=== PATIENT | male | born 1970 | race African-American/Black ===

== ENCOUNTER 2025-04-29 17:26 | Emergency (ER) | payer OTHER, SELFPAY ==
[2025-04-29 17:28] VITALS: BP 168/97; PULSE 99; RESP 18; TEMP 36.6; O2SAT 98
--- OUTSIDE RECORDS SUMMARY | 2025-04-29 17:28 | XMS_ITS | Clinical Summary ---
Author Organization [address] Address [address] [place] [address] Care Team Providers Care Business Continuity Director Name Role Phone Unknown, Notinfile Primary Care Provider Unavail able Allergies No known active allergies Medications albuterol HFA (PROVENTIL HFA,VENTOLIN HFA,PROAIR HFA) 90 mcg/actuation inhaler Inhale 2 puffs every 6 (six) hours as needed 5 Active amLODIPine (NORVASC) 10 mg tablet Take 1 tablet (10 mg total) by mouth daily 5 Active losartan-hydroc hlorothiazide (HYZAAR) 100-25 mg per tablet Take 1 tablet by mouth daily 5 Active tadalafiL (ADCIRCA) 10 mg tablet Take 1 tablet (10 mg total) by mouth daily as needed 4 Active cyclobenzaprine (FLEXERIL) 10 mg tabletIndicatio ns:Sciatica of right side Take 1 tablet (10 mg total) by mouth 2 (two) times a day as needed for muscle spasms 15 tablet 5 Active methylPREDNISol one (MEDROL DOSEPACK) 4 mg DosepackIndicat ions:Sciatica of right side Take 6 tabs on day 1, reduce dose by 1 daily until prescription is complete. 1 packet 5 Active Active Problems No known active problems Social History Tobacco Use Types Packs/Day Years Used Date Smoking Tobacco: Never Assessed Sex and Gender Information Value Date Recorded Sex Assigned at Not on file Legal Sex Male 3:23 PM CDT Gender Identity Not on file Sexual Orientation Not on file Last Filed Vital Signs Vital Sign Reading Time Taken Comments Blood Pressure 145/85 10/10/2024 4:28 PM CDT Pulse 80 10/10/2024 4:28 PM CDT Temperature 36.8 C (98.2 F) 10/10/2024 4:28 PM CDT Respiratory Rate 18 10/10/2024 4:28 PM CDT Oxygen Saturation 95% 10/10/2024 4:28 PM CDT Inhaled Oxygen Concentration - - Weight 122.4 kg (269 lb 14.4 oz) 10/10/2024 4:28 PM CDT Height 180.3 cm (5' 11) 10/10/2024 4:28 PM CDT Body Mass Index 37.64 10/10/2024 4:28 PM CDT Plan of Treatment Health Maintenance Due Date Last Done Comments Colon Cancer Screening-Colonoscopy 1971 Depression Screening 1971 Hepatitis C Screening 1971 Prostate Cancer Screening-PSA 1971 Hepatitis B Screening 12/19/1989 Regular Well Visit/Exam 18-64 12/19/1989 Zoster Vaccine (1 of 2) 12/19/2021 Covid-19 Vaccine (3 - 2024-2 6 season) 2025 03/25/2021, 02/27/2021 Influenza Vaccine (#1) 2025 3, 02/14/2022 DTaP/Tdap/Td Vaccine (2 - Td or Tdap) 05/06/2026 05/06/2016 Pneumococcal vaccine <65 Aged Out No longer eligible based on patient's age to complete this topic Insurance SHOBHA ALLEGIANCE Care Teams Business Continuity Director Relationship Specialty Start Date End Date Unknown, Notinfile PCP - General 10/10/24
--- OUTSIDE RECORDS SUMMARY | 2025-04-29 17:28 | XMS_ITS | Clinical Summary ---
Author Organization [facility] Address [facility] [place] [address] Care Team Providers Care Canadian Bacon Tier Name Role Phone Ayde Berry MD Primary Care Provider [phone] Allergies No known active allergies Medications albuterol sulfate HFA 90 mcg/actuation aerosol inhaler Take 2 Puffs by inhalation every 6 hours as needed for Shortness of Breath. 8.5 Gram 5 Active vardenafiL (LEVITRA) 20 mg tabletIndications :Erectile dysfunction, unspecified erectile dysfunction type Take 1 Tablet (20 mg) by mouth 1 time daily as needed for Erectile Dysfunction. 18 Tablet 5 Active meloxicam (MOBIC) 7.5 mg tabletIndications :Low back pain potentially associated with radiculopathy,Rig ht knee pain, unspecified chronicity Take 1 Tablet (7.5 mg) by mouth daily. For back and knee pain 90 Tablet 5 Active amLODIPine (NORVASC) 10 mg tabletIndications :Benign hypertension Take 1 Tablet (10 mg) by mouth daily. 90 Tablet 5 Active losartan-hydroCHL OROthiazide (HYZAAR) 100-25 mg tabletIndications :Benign hypertension Take 1 Tablet by mouth daily in the morning. 90 Tablet 5 Active fexofenadine (FABIENNE) 180 mg tablet Take 1 Tablet (180 mg) by mouth daily. For allergies 90 Tablet 5 Active Active Problems Problem Noted Date Diagnosed Date Erectile dysfunction 11/12/2023 Tobacco use 11/30/2019 Plantar fasciitis of left foot 08/14/2018 IFG (impaired fasting glucose) 08/14/2018 Benign hypertension 01/10/2018 Encounters Date Type Department Care Team Description 04/14/2025 8:00 AM SHRIMP HEADER Office Visit [facility] [address] [place] [address] Michael Lees Grief (Primary Dx) 03/31/2025 Chart Note [facility] [address] [place] [address] Michael Lees 03/24/2025 8:00 AM SHRIMP HEADER Office Visit [facility] [address] [place] [address] Michael Lees Grief (Primary Dx) 03/10/2025 8:00 AM SHRIMP HEADER Office Visit [facility] [address] [place] [address] Michael Lees Grief (Primary Dx) 03/10/2025 External Device Data STL ABSTRACTION Provider, Abstract 03/03/2025 External Device Data STL ABSTRACTION Provider, Abstract 02/24/2025 8:00 AM CDT Office Visit [facility] [address] [place] [address] Michael Lees Grief (Primary Dx) 02/17/2025 Chart Note [facility] [address] [place] [address] Michael Lees 02/11/2025 Results Follow-Up [facility] [address] [place] [address] Emelia Cadet, ANP PSA, URINALYSIS WITH REFLEX MICROSCOPIC, MICROALBUMIN/CREATIN INE RATIO, RANDOM UR 02/10/2025 9:00 AM CDT Office Visit [facility] [address] [place] [address] Michael Lees Grief (Primary Dx) 02/08/2025 8:20 AM CDT Procedure visit [facility] [place] [address] [place] [address] Screening for prostate cancer; Benign hypertension 02/01/2025 7:30 AM CDT Office Visit [facility] [place] [address] [place] [address] Emelia Cadet, SAAD Benign hypertension (Primary Dx); Low back pain potentially associated with radiculopathy; Right knee pain, unspecified chronicity; Grief; Severe obesity (BMI 35.0-39.9) with comorbidity (CMS/HCC); Screen for colon cancer from Last 3 Months Immunizations Immunization Administration Dates Next Due (ADACEL/BOOSTRIX)(10 YR UP) TDAP VACCINE, 0.5ML, IM 05/06/2016 (SPIKEVAX) (12 YRS UP PRIMAR Y SERIES) COVID-19 VACCINE - MRNA-1273(PF) 100 MCG/0.5 ML IM SUSP 03/27/2021,02/27/2021 INFLUENZA VACCINE QUADRIVALENT 6 MOS UP PF IM ,02/14/2022 Family History Medical History Relation Name Comments Sudden Brother 1 MVA No Known Problems Daughter Diabetes Father Unknown Father Unknown Maternal Grandfather Cancer Maternal Grandmother Hypertension Mother Lung Cancer Mother Unknown Paternal Grandfather Unknown Paternal Grandmother No Known Problems Son Relation Name Status Comments Brother 1 Brother 2 Alive Brother 3 Alive Daughter Alive Father Maternal Grandfather Maternal Grandmother Mother Alive Paternal Grandfather Paternal Grandmother Sister Alive Son Alive Social History Tobacco Use Types Packs/Day Years Used Date Smoking Tobacco: Some Days Cigarettes Passive Smoke Exposure: Never Smokeless Tobacco: Never Tobacco Cessation:Counseling Given: Not Answered Comments:ONE EVERY TWO MONTHS AT MOST. Alcohol Use Standard Drinks/Week Comments Yes 0 (1 standard drink = 0.6 oz pur e alcohol) a drink or 2 every 2 weeks. Sex and Gender Information Value Date Recorded Sex Assigned at Not on file Legal Sex Male 1:43 PM SHRIMP HEADER Gender Identity Not on file Sexual Orientation Not on file Last Filed Vital Signs Vital Sign Reading Time Taken Comments Blood Pressure 138/86 02/01/2025 7:09 AM CDT Pulse 77 02/01/2025 7:09 AM CDT Temperature 36.2 C (97.2 F) 02/01/2025 7:09 AM CDT Respiratory Rate 18 02/01/2025 7:09 AM CDT Oxygen Saturation 97% 02/01/2025 7:09 AM CDT Inhaled Oxygen Concentration - - Weight 123.4 kg (272 lb) 02/01/2025 7:09 AM CDT Height 177.8 cm (5' 10) 02/01/2025 7:09 AM CDT Body Mass Index 39.03 02/01/2025 7:09 AM CDT Plan of Treatment Upcoming Encounters Date Type Department Care Team (Late st Contact Info) Description 05/03/2025 8:00 AM SHRIMP HEADER Office Visit [facility] [place] [address] [place] [address] Michael Lees [address] [place] [phone] 05/24/2025 8:00 AM SHRIMP HEADER Office Visit [facility] [place] [address] [place] [address] Michael Lees [address] [place] [phone] 07/26/2025 8:30 AM CDT Office Visit [facility] [employer] [place] [address] [place] [address] Emelia Cadet, [facility] [address] [place] [address] Health Maintenance Due Date Last Done Comments HEPATITIS B VACCINES (1 of 3 - 19+ 3-dose series) 12/19/1990 COLORECTAL SCREENING 12/19/2016 Colorectal Cancer Screening 12/19/2016 FIT-DNA Q 3 years 12/19/2016 FIT/FOBT Q 1 year 12/19/2016 Flex Sig/CT Colonography Q 5 years 12/19/2016 ZOSTER VACCINE (1 of 2) 12/19/2021 INFLUENZA VACCINE (#1) 2024 02/07/2023, 2021 COVID-19 Vaccine (3 - 2024-2 6 season) 2025 03/27/2021, 02/27/2021 DTAP/TDAP/TD VACCINES (2 - T d or Tdap) 05/06/2026 05/06/2016 Pre-Diabetes and Diabetes Screening 08/04/2027 08/03/2024, 07/08/2023, 10/08/2022, Additional history exists Procedures Procedure Name Priority Date/Time Associated Diagnosis Comments MICROALBUMIN/CREATIN INE RATIO, RANDOM UR Routine 02/08/2025 8:02 AM CDT Benign hypertension URINALYSIS W/REFLEX MICROSCOPIC Routine 02/08/2025 8:02 AM CDT Benign hypertension PSA Routine 02/08/2025 8:02 AM CDT Screening for prostate cancer HEMOGLOBIN A1C Routine 08/03/2024 7:44 AM CDT IFG (impaired fasting glucose) from Last 3 Months or Most Recently Relevant to Health Maintenance Results * MICROALBUMIN/CREATININE RATIO, RANDOM UR (02/08/2025 8:02 AM CDT) CREATININE, URINE 222 20 - 320 mg/dL [facility] ALBUMIN, URINE 0.8 See Note: mg/dL [facility] Comment: Reference Range: Reference Range Not established ALB/CREAT RATIO, URINE 4 <30 mg/g creat [facility] Comment: The ADA defines abnormalities in albumin excretion as follows: Albuminuria Category Result (mg/g creatinine) Normal to Mildly increased <30 Moderately increased 30-299 Severely increased > OR = 300 The ADA recommends that at least two of three specimens collected within a 3-6 month period be abnormal before considering a patient to be within a diagnostic category. Test Performed at: [facility] [address] [address] Hillary Lebron MD Urine URINE SPECIMEN OBTAINED BY CLEAN CATCH PROCEDURE / Unknown 02/08/2025 8:02 AM CDT 02/09/2025 6:34 AM CDT Emelia Cadet ANP URINE ORDERABLES Final Resul t Performing Organization Address [facility] de Phone Number [facility] [phone] [facility] [address] [place] [address] * URINALYSIS WITH REFLEX MICROSCOPIC (02/08/2025 8:02 AM CDT) COLOR UA YELLOW YELLOW [facility] CLARITY UA CLEAR CLEAR [facility] SPECIFIC GRAVITY UA 1.028 1.001 - 1.035 [facility] PH UA 6.0 5.0 - 8.0 [facility] GLUCOSE UA NEGATIVE NEGATIVE [facility] BILIRUBIN UA NEGATIVE NEGATIVE [facility] KETONES UA NEGATIVE NEGATIVE [facility] BLOOD UA NEGATIVE NEGATIVE [facility] PROTEIN UA NEGATIVE NEGATIVE [facility] NITRITE UA NEGATIVE NEGATIVE [facility] LEUKOCYTE ESTERASE UA NEGATIVE NEGATIVE [facility] Comment: Test Performed at: [facility] [address] [place] [address] Hillary Lebron MD Urine URINE SPECIMEN OBTAINED BY CLEAN CATCH PROCEDURE / Unknown 02/08/2025 8:02 AM CDT 02/09/2025 6:34 AM CDT Emelia Cadet ANP URINE ORDERABLES Final Resul t Performing Organization Address [facility] Co de Phone Number [facility] [phone] [facility] [address] [place] [address] * PSA (02/08/2025 8:02 AM CDT) Pathologist [facility] PSA 0.48 < OR = 4.00 ng/mL [facility] Comment: The total PSA value from this assay system is standardized against the WHO standard. The test result will be approximately 20% lower when compared to the equimolar-standardized total PSA (Nathaniel Baljit). Comparison of serial PSA results should be interpreted with this fact in mind. This test was performed using the Siemens chemiluminescent method. Values obtained from different assay methods cannot be used interchangeably. PSA levels, regardless of value, should not be interpreted as absolute evidence of the presence or absence of disease. Test Performed at: [facility] [address] Hillary Lebron MD Blood 02/08/2025 8:02 AM CDT 02/09/2025 3:54 AM CDT us Emelia Cadet [facility] CHEMISTRY ORDERABLES Final R esult [facility] [phone] [facility] [address] * HEMOGLOBIN A1C (08/03/2024 7:44 AM CDT) HEMOGLOBIN A1C 5.4 <5.7 % of total Hgb [facility] Comment: For the purpose of screening for the presence of diabetes: <5.7% Consistent with the absence of diabetes 5.7-6.4% Consistent with increased risk for diabetes (prediabetes) > or =6.5% Consistent with diabetes This assay result is consistent with a decreased risk of diabetes. Currently, no consensus exists regarding use of hemoglobin A1c for diagnosis of diabetes in children. According to [place] Diabetes Association (ADA) guidelines, hemoglobin A1c <7.0% represents optimal control in non- diabetic patients. Different metrics may apply to specific patient populations. Standards of Medical Care in Diabetes(ADA). ESTIMATED AVERAGE GLUCOSE (MG/DL) 108 mg/dL [facility] ESTIMATED AVERAGE GLUCOSE (MMOL/L) 6.0 mmol/L [facility] Comment: Test Performed at: [facility] [address] Hillary Lebron MD Blood 08/03/2024 7:44 AM CDT 08/04/2024 5:08 AM CDT Emelia Strong Helio ANP CHEMISTRY ORDERABLES Final R esult [facility] [phone] [facility] [address] [phone] from Last 3 Months or Most Recently Relevant to Health Maintenance Insurance * Guarantor: [employer]) Account Type Relation to Patient Date of Phone Billing Address Corporate Employer ATTN: GRETEL TALLEY [address] [address] ALLEGIANCE OPEN ACCESS * Guarantor: [employer] Account Type Relation to Patient Date of Phone Billing Address Corporate Employer ATTN: GRETEL TALLEY [address] [address] Care Teams Canadian Bacon Tier Relationship Specialty Start Date End Date Ayde Berry MD [address] [place] [phone] PCP - General Internal Medicine 11/12/23
--- NOTE | 2025-04-29 18:03 | ED_ITS ---
HPI - Wound/Laceration General Chief Complaint: Wound/Laceration Stated Complaint: R 5TH DIGIT LAC Time Seen by Provider: 04/29/25 17:35 Source: patient Mode of arrival: ambulatory Limitations: no limitations History of Present Illness HPI narrative: This is a 54-year-old male with history of hypertension who presents the ED for finger laceration. Patient states that his grating some cheese when he looked away and accidentally cut his right 5th finger. Unsure of his last tetanus shot. He was able to control the bleeding. He states that his family was concerned so he came to the ED for further evaluation. Related Data Allergies Allergy/AdvReac Type Severity Reaction Status Date / Time No Known Allergies Allergy Verified 04/29/25 17:26 Review of Systems Review of Systems: All systems reviewed & are unremarkable except as noted in HPI and below PMFSH Family History Family History Mother Hypertension Sibling Hypertension Other Family history of seizure disorder Social History Social History Smoking status: Never smoker Alcohol intake: never Exam Narrative: APPEARANCE: No acute distress, nontoxic, resting in bed HEENT: Normocephalic, atraumatic, OMM RESPIRATORY: No respiratory distress CARDIOVASCULAR: Appears well perfused ABDOMINAL: Nondistended MUSCULOSKELETAl: Moves all extremities. 5 x 5 mm avulsion laceration to the lateral aspect of the right 5th digit, some oozing, neurovascularly intact distally. NEURO: Awake and alert. SKIN:: Warm, dry. No rashes lesions or abrasions PSYCHIATRIC: Normal affect/mood, Course Vital Signs Vital signs: Vital Signs Temperature 97.8 F 04/29/25 17:28 Pulse Rate 99 04/29/25 17:28 Respiratory Rate 18 04/29/25 17:28 Blood Pressure 168/97 H 04/29/25 17:28 Pulse Oximetry 98 04/29/25 17:28 Oxygen Delivery Room Air 04/29/25 17:28 Temperature 97.8 F 04/29/25 17:28 Pulse Rate 99 04/29/25 17:28 Respiratory Rate 18 04/29/25 17:28 Blood Pressure 168/97 H 04/29/25 17:28 Pulse Oximetry 98 04/29/25 17:28 Oxygen Delivery Room Air 04/29/25 17:28 MDM MDM Narrative Medical decision making narrative: 54-year-old male Presenting for avulsion laceration. On initial evaluation patient was in no acute distress afebrile, hemodynamic stable. Differentials include but are not limited to: Laceration, abrasion, contusion Notable exam findings: 5 x 5 mm avulsion laceration to the right 5th digit, some oozing Laceration is not amenable to repair. It was wrapped with non adherent dressing with a compressive component with Kana bandage. He was advised follow-up with his PCP in the next week for re-evaluation. Patient will be going to a clinic on Saturday where he will have tetanus updated. Patient was agreeable to this plan. Given strict return precautions. Differential Diagnosis Differential Diagnosis: Laceration, abrasion, contusion Discharge Plan Discharge Clinical Impression: Avulsion of skin Patient Disposition: Home Condition: Stable Instructions: Antibiotic Form, Skin Avulsion (ED) Additional Instructions: Keep the laceration clean. Follow-up with your PCP in the next week for re- evaluation. Return to the ED for any new worsening symptoms rate Patient Language: Norwegian Follow-up/Referrals: UNKNOWN,DOCTOR [Primary Care Provider]
--- OUTSIDE RECORDS SUMMARY | 2025-04-29 18:15 | XMS_ITS ---
Author Organization Unknown ENCOUNTERS Encounter Performer Location Date Diagnosis Diagnosis Status Emergency [place] [address] [place] [phone] CINDY Pre Admit [place] [address] [place] [phone] CINDY *Note: Encounters from your own facility or health system may be excluded. Allergies, Adverse Reactions, Alerts Allergen Type Severity Identification Date Medications Name Date Quantity Days Supplied GPI Number
--- OUTSIDE RECORDS SUMMARY | 2025-04-29 18:15 | XMS_ITS | Clinical Summary ---
Author Organization [address] Address [address] [place] [address] Care Team Providers Care Front End Architect Name Role Phone Unknown, Notinfile Primary Care [...] this topic Insurance SHOBHA ALLEGIANCE Care Teams Front End Architect Relationship Specialty Start Date End Date Unknown, Notinfile PCP - General 10/10/24
--- OUTSIDE RECORDS SUMMARY | 2025-04-29 18:15 | XMS_ITS | Clinical Summary ---
Author Organization [facility] [place] Address [facility] [place] [address] Care Team Providers Care Die Maker Trim Name Role Phone Ayde Berry MD Primary Care Provider [phone] Allergies No known active allergies Medications albuterol [...] Department Care Team Description 04/14/2025 8:00 AM SENIOR SEARCH MARKETING ANALYST Office Visit [facility] [address] [place] [address] Michael Lees Grief (Primary Dx) 03/31/2025 Chart Note [facility] [address] [place] [address] Michael Lees 03/24/2025 8:00 AM SENIOR SEARCH MARKETING ANALYST Office Visit [facility] [address] [place] [address] Michael Lees Grief (Primary Dx) 03/10/2025 8:00 AM SENIOR SEARCH MARKETING ANALYST Office Visit [facility] [address] [place] [address] Michael Lees Grief (Primary Dx) 03/10/2025 External Device Data STL ABSTRACTION Provider, Abstract 03/03/2025 External Device Data STL ABSTRACTION Provider, Abstract 02/24/2025 8:00 AM CDT Office Visit [facility] [address] [place] [address] Michael Lees Grief (Primary Dx) 02/17/2025 Chart Note [facility] [address] [place] [address] Michael Lees 02/11/2025 Results Follow-Up [facility] [address] [place] [address] Emelia Cadet, ANP PSA, URINALYSIS WITH REFLEX MICROSCOPIC, MICROALBUMIN/CREATIN INE RATIO, RANDOM UR 02/10/2025 9:00 AM CDT Office Visit [facility] [address] [place] [address] Michael Lees Grief (Primary Dx) 02/08/2025 8:20 AM CDT Procedure visit [facility] [place] [address] [place] [address] Screening for prostate cancer; Benign hypertension 02/01/2025 7:30 AM CDT Office Visit [facility] [employer] [place] [address] [place] [address] Emelia Cadet, SAAD Benign hypertension (Primary Dx); [...] on file Legal Sex Male 1:43 PM SENIOR SEARCH MARKETING ANALYST Gender Identity Not on file Sexual Orientation [...] st Contact Info) Description 05/03/2025 8:00 AM SENIOR SEARCH MARKETING ANALYST Office Visit [facility] [employer] [place] [address] [place] [address] Michael Lees [address] [place] [phone] 05/24/2025 8:00 AM SENIOR SEARCH MARKETING ANALYST Office Visit [facility] [employer] [place] [address] [place] [address] Michael Lees [address] [place] [phone] 07/26/2025 8:30 AM CDT Office Visit [facility] [employer] [place] [address] [place] [address] Emelia Cadet, [facility] [address] [place] [address] Health Maintenance Due Date Last Done Comments [...] within a diagnostic category. Test Performed at: [facility] [address] [address] Hillary Lebron MD Urine URINE SPECIMEN OBTAINED BY CLEAN CATCH PROCEDURE / Unknown 02/08/2025 8:02 AM CDT 02/09/2025 6:34 AM CDT Emelia Cadet ANP URINE ORDERABLES Final Resul t Performing Organization Address [facility] de Phone Number [facility] [phone] [facility] [address] [place] [address] * URINALYSIS WITH REFLEX MICROSCOPIC (02/08/2025 8:02 [...] [facility] Comment: Test Performed at: [facility] [address] [place] [address] Hillary Lebron MD Urine URINE SPECIMEN OBTAINED BY CLEAN CATCH PROCEDURE / Unknown 02/08/2025 8:02 AM CDT 02/09/2025 6:34 AM CDT Emelia Cadet ANP URINE ORDERABLES Final Resul t Performing Organization Address [facility] Co de Phone Number [facility] [phone] [facility] [address] [place] [address] * PSA (02/08/2025 8:02 AM CDT) Pathologist [facility] PSA 0.48 < OR = 4.00 ng/mL [facility] Comment: The total PSA value from [...] or absence of disease. Test Performed at: [facility] [address] Hillary Lebron MD Blood 02/08/2025 8:02 AM CDT 02/09/2025 3:54 AM CDT us Emelia Cadet [facility] CHEMISTRY ORDERABLES Final R esult [facility] [phone] [facility] [address] * HEMOGLOBIN A1C (08/03/2024 7:44 AM CDT) HEMOGLOBIN A1C 5.4 <5.7 % of total Hgb [facility] Comment: For the purpose of screening for the presence of diabetes: <5.7% Consistent with the absence of diabetes 5.7-6.4% Consistent with increased risk for diabetes (prediabetes) > or =6.5% Consistent with diabetes This assay result is consistent with a decreased risk of diabetes. Currently, no consensus exists regarding use of hemoglobin A1c for diagnosis of diabetes in children. According to [place] Diabetes Association (ADA) guidelines, hemoglobin A1c <7.0% represents optimal control in non- diabetic patients. Different metrics may apply to specific patient populations. Standards of Medical Care in Diabetes(ADA). ESTIMATED AVERAGE GLUCOSE (MG/DL) 108 mg/dL [facility] ESTIMATED AVERAGE GLUCOSE (MMOL/L) 6.0 mmol/L [facility] Comment: Test Performed at: [facility] [address] Hillary Lebron MD Blood 08/03/2024 7:44 AM CDT 08/04/2024 5:08 AM CDT Emelia Strong Helio ANP CHEMISTRY ORDERABLES Final R esult [facility] [phone] [facility] [address] [phone] from Last 3 Months or Most Recently Relevant to Health Maintenance Insurance * Guarantor: [employer]) Account Type Relation to Patient Date of Phone Billing Address Corporate Employer ATTN: GRETEL TALLEY [address] [address] [employer]GI[employer] OPEN ACCESS * Guarantor: [employer] Account Type Relation to Patient Date of Phone Billing Address Corporate Employer ATTN: GRETEL TALLEY [address] [address] Care Teams Die Maker Trim Relationship Specialty Start Date End Date Ayde Berry MD [address] [place] [phone] PCP - General Internal Medicine 11/12/23
== END 2025-04-29 18:21 | disposition home or self-care (01) ==
LOC: ANHED 18:13
PROVIDERS: Emergency Provider Student in an Organized Health Care Education/Training Program
DX: S61.216A Laceration without foreign body of right little finger without damage to nail, initial encounter (principal); W45.8XXA Other foreign body or object entering through skin, initial encounter; I10 Essential (primary) hypertension
CPT/HCPCS: 99282